=== PATIENT | female | born 1940 | race Caucasian/White ===

== ENCOUNTER 2025-06-18 11:41 | Inpatient (IN) | payer MEDICARE, MEDICAID ==
[~2025-06-18] VITALS: Ht 152.4 cm; Wt 78.4 kg
[2025-06-18] VITALS (9 sets, daily range): BP systolic 100–142; BP diastolic 71–99; PULSE 59–98; RESP 15–18; TEMP 97.5–98; O2SAT 96–100
[2025-06-18] MEDS: LORazepam 2 MG/ML VIAL IM ONE (12:05)
[2025-06-18 13:49] LABS: COVID AG,FIA SOURCE NASAL SWAB; PLATELET COUNT (AUTO) 156 K/uL (150-450); RED BLOOD CELL COUNT(AUTO) 3.65 MIL/uL (4.00-5.20); RED CELL DISTRIBUTION WIDTH 13.7 % (11.5-14.5); WHITE BLOOD COUNT (AUTO) 7.4 K/uL (4.5-11.0)
[2025-06-18 13:55] LABS: CALCIUM, TOTAL 8.3 mg/dL (8.8-10.5); CREATININE 0.93 mg/dL (0.60-1.30); GLOMERULAR FILTR. RATE CALC 58.0 mL/min (>60); GLUCOSE,RANDOM 96.0 mg/dL (70-110); SODIUM SERUM 142.0 mmol/L (136-145); UREA NITROGEN, BLOOD 21.0 mg/dL (7-18)
[2025-06-18 14:04] LABS: TROPONIN I-HIGH SENSITIVITY 22 ng/L (<51)
[2025-06-18 14:05] LABS: LACTIC ACID 1.5 mmol/L (0.4-2.0)
[2025-06-18 14:13] LABS: SARS-COV2 (COVID) ANTIGEN,FIA Negative (Negative)
[2025-06-18] MEDS ORDERED: ZOLPIDEM TARTRATE 10 MG TABLET PO PRN (15:00)
[2025-06-19] MEDS ORDERED: LOPERAMIDE HCL 2 MG CAPSULE PO PRN (06:15)
[2025-06-19] MEDS ORDERED: PETROLATUM,WHITE 28 GM JELLY TP PRN (06:15)
[2025-06-19] MEDS ORDERED: NICOTINE 14 MG/24 HOUR PATCH TD PRN (06:15)
[2025-06-19] MEDS ORDERED: ALBUTEROL SULFATE HFA 90 MCG/PUFF 8 GM INHALER IH PRN (06:15)
[2025-06-19] MEDS ORDERED: ONDANSETRON 4 MG TABLET PO PRN (06:15)
[2025-06-19] MEDS ORDERED: MAG HYDROX/ALUMINUM HYD/SIMETH ES 30 ML SUSPENSION UDCUP PO PRN (06:15)
[2025-06-19] MEDS ORDERED: GuaiFENesin/D-METHORPHAN [SUGAR-FREE] 200-20MG/10 ML SYRUP UDCUP PO PRN (06:15)
[2025-06-19 07:24] LABS: PLATELET COUNT (AUTO) 152 K/uL (150-450); RED BLOOD CELL COUNT(AUTO) 3.71 MIL/uL (4.00-5.20); RED CELL DISTRIBUTION WIDTH 13.5 % (11.5-14.5); WHITE BLOOD COUNT (AUTO) 4.2 K/uL (4.5-11.0)
[2025-06-19 07:43] LABS: ASPARTATE AMINOTRANSFERASE 22 U/L (15-37); CALCIUM, TOTAL 8.9 mg/dL (8.8-10.5); CHOL/HDL RATIO 3.1 (3.9-5.7); CREATININE 0.87 mg/dL (0.60-1.30); GLOMERULAR FILTR. RATE CALC > 60 mL/min (>60); GLUCOSE,RANDOM 90 mg/dL (70-110); LDL CHOL (CALC.) 96 mg/dL (0-130); SODIUM SERUM 142 mmol/L (136-145); TOTAL PROTEIN, SERUM 6.0 g/dL (6.4-8.2); UREA NITROGEN, BLOOD 20 mg/dL (7-18)
[2025-06-19 11:08] VITALS: BP 139/55; PULSE 59; RESP 19; TEMP 97; O2SAT 95
[2025-06-19 21:20] VITALS: BP 124/73; PULSE 62; RESP 18; TEMP 97.1; O2SAT 99
[2025-06-19 22:27] LABS: APPEARANCE,URINE CLEAR (CLEAR); GLUCOSE, URINE (UA) NEGATIVE (NEGATIVE); LEUKOCYTE ESTERASE ,URINE NEGATIVE (NEGATIVE); NITRATE,URINE NEGATIVE (NEGATIVE); OCCULT BLOOD,URINE NEGATIVE (NEGATIVE); PH,URINE DRUG SCREEN 5.5 (5.0-8.0); SPECIFIC GRAVITIY, URINE 1.012 (1.003-1.030)
[2025-06-19 22:42] LABS: ALCOHOL, URINE DRUG SCREEN NEGATIVE (NEGATIVE); AMPHET/METH SCREEN,URINE NEGATIVE (NEGATIVE); BARBITURATE SCREEN, URINE NEGATIVE (NEGATIVE); CANNABINOID SCREEN,URINE NEGATIVE (NEGATIVE); COCAINE SCREEN,URINE NEGATIVE (NEGATIVE); METHADONE SCREEN, URINE NEGATIVE (NEGATIVE)
[2025-06-20 09:20] VITALS: BP 113/52; PULSE 56; RESP 18; TEMP 97.8; O2SAT 100
[2025-06-20 11:16] VITALS: BP 118/62; PULSE 70; RESP 18; TEMP 97; O2SAT 99
[2025-06-20] MEDS: IBUPROFEN 400 MG TABLET PO PRN (11:16)
[2025-06-21 08:23] LABS: CHOL/HDL RATIO 3.1 (3.9-5.7); LDL CHOL (CALC.) 116.0 mg/dL (0-130)
[2025-06-21 14:52] VITALS: BP 122/52; PULSE 60; RESP 17; TEMP 98.1; O2SAT 100
[2025-06-21 20:00] VITALS: BP 125/62; PULSE 60; RESP 18; TEMP 97.5; O2SAT 98
[2025-06-22 09:01] VITALS: BP 137/61; PULSE 51; RESP 16; TEMP 97.8; O2SAT 98
[2025-06-22 10:01] VITALS: BP 137/61; PULSE 51; RESP 16; TEMP 97.8; O2SAT 98
[2025-06-22 20:41] VITALS: BP 110/65; PULSE 66; RESP 18; TEMP 96.7; O2SAT 95
[2025-06-23 10:09] VITALS: BP 105/44; PULSE 73; RESP 18; TEMP 96.8; O2SAT 95
[2025-06-23 20:49] VITALS: BP 124/56; PULSE 61; RESP 18; TEMP 98.1; O2SAT 99
[2025-06-24 09:14] VITALS: BP 117/55; PULSE 54; RESP 16; TEMP 98.7; O2SAT 99
[2025-06-24 20:00] VITALS: BP 121/61; PULSE 55; RESP 18; TEMP 97.5; O2SAT 95
[2025-06-25 09:41] VITALS: BP 117/68; PULSE 61; RESP 18; TEMP 97.8; O2SAT 99
[2025-06-25 20:48] VITALS: BP 119/76; PULSE 59; RESP 19; TEMP 97.9; O2SAT 99
[2025-06-26 09:13] VITALS: BP 119/52; PULSE 59; RESP 18; O2SAT 99
[2025-06-26] MEDS: SULFAMETHOX/TRIMETH DS 800-160 MG/TABLET PO SCH (09:47)
[2025-06-26 09:48] VITALS: BP 121/62; PULSE 61; RESP 17; TEMP 98
[2025-06-26 10:19] LABS: PLATELET COUNT (AUTO) 212 K/uL (150-450); RED BLOOD CELL COUNT(AUTO) 4.17 MIL/uL (4.00-5.20); RED CELL DISTRIBUTION WIDTH 13.3 % (11.5-14.5); WHITE BLOOD COUNT (AUTO) 4.7 K/uL (4.5-11.0)
[2025-06-26 10:23] LABS: CALCIUM, TOTAL 8.9 mg/dL (8.8-10.5); CREATININE 0.91 mg/dL (0.60-1.30); GLOMERULAR FILTR. RATE CALC 59.0 mL/min (>60); GLUCOSE,RANDOM 90.0 mg/dL (70-110); SODIUM SERUM 139.0 mmol/L (136-145); UREA NITROGEN, BLOOD 25.0 mg/dL (7-18)
[2025-06-26 10:48] VITALS: BP 106/61; PULSE 61; RESP 17; TEMP 98
[2025-06-26 20:50] VITALS: BP 96/68; PULSE 61; RESP 18; TEMP 97.7; O2SAT 100
[2025-06-27 08:25] VITALS: BP 105/51; PULSE 53; RESP 18; TEMP 98.2; O2SAT 100
[2025-06-27 20:38] VITALS: BP 119/49; PULSE 54; RESP 18; TEMP 97.3; O2SAT 99
[2025-06-28 08:22] VITALS: BP 141/59; PULSE 59; RESP 17; TEMP 98.2; O2SAT 97
[2025-06-28 23:49] VITALS: BP 120/57; PULSE 62; RESP 18; TEMP 98; O2SAT 97
[2025-06-29 10:05] VITALS: BP 111/42; PULSE 60; RESP 16; TEMP 98.2; O2SAT 98
[2025-06-29 20:36] VITALS: BP 139/70; PULSE 60; RESP 18; TEMP 98; O2SAT 99
[2025-06-30 15:00] VITALS: BP 142/86; PULSE 85; RESP 18; TEMP 97.5; O2SAT 98
[2025-06-30 21:25] VITALS: BP 109/65; PULSE 86; RESP 18; O2SAT 100
[2025-07-01 07:40] LABS: PLATELET COUNT (AUTO) 207 K/uL (150-450); RED BLOOD CELL COUNT(AUTO) 4.15 MIL/uL (4.00-5.20); RED CELL DISTRIBUTION WIDTH 13.6 % (11.5-14.5); WHITE BLOOD COUNT (AUTO) 5.0 K/uL (4.5-11.0)
[2025-07-01 16:46] VITALS: BP 112/83; PULSE 61; RESP 18; TEMP 97.8; O2SAT 98
[2025-07-01 21:00] VITALS: BP 146/72; PULSE 91; RESP 18; TEMP 97.5; O2SAT 98
[2025-07-02 08:06] VITALS: BP 113/61; PULSE 63; RESP 17; TEMP 98.2; O2SAT 100
[2025-07-02 20:35] VITALS: BP 140/67; PULSE 61; RESP 18; TEMP 98.2; O2SAT 97
[2025-07-03 08:33] VITALS: BP 135/65; PULSE 56; RESP 18; TEMP 97.9; O2SAT 96
[2025-07-03 08:41] VITALS: BP 135/65; PULSE 56; RESP 18; TEMP 97.9; O2SAT 100
[2025-07-03 09:48] VITALS: BP 135/65; PULSE 56; RESP 18; TEMP 97.9; O2SAT 98
[2025-07-03 20:13] VITALS: BP 131/96; PULSE 54; RESP 18; TEMP 98.3; O2SAT 99
[2025-07-04 10:49] VITALS: BP 107/70; PULSE 70; RESP 18; TEMP 98.6; O2SAT 98
[2025-07-04 20:00] VITALS: BP 114/60; PULSE 55; RESP 18; TEMP 96.5; O2SAT 97
[2025-07-05 10:16] VITALS: BP 121/104; PULSE 86; RESP 17; TEMP 97.7; O2SAT 97
[2025-07-05 20:46] VITALS: BP 115/66; PULSE 56; RESP 18; TEMP 97.8; O2SAT 99
[2025-07-06 10:16] VITALS: BP 144/60; PULSE 59; RESP 17; TEMP 98.1; O2SAT 97
[2025-07-06 21:55] VITALS: BP 145/65; PULSE 64; RESP 18; TEMP 98; O2SAT 96
[2025-07-07 08:00] VITALS: BP 117/52; PULSE 59; RESP 18; TEMP 97.9; O2SAT 98
[2025-07-07 20:33] VITALS: BP 116/63; PULSE 63; RESP 18; TEMP 98; O2SAT 98
[2025-07-08 20:00] VITALS: BP 111/53; PULSE 50; RESP 16; TEMP 98.1; O2SAT 97
[2025-07-08 21:27] VITALS: BP 111/53; PULSE 59; RESP 16; TEMP 98.1; O2SAT 97
[2025-07-09 10:33] VITALS: BP 112/55; PULSE 57; RESP 17; TEMP 97.5; O2SAT 95
[2025-07-09 21:00] VITALS: BP 119/64; PULSE 61; RESP 18; TEMP 97.8; O2SAT 96
[2025-07-10 08:30] VITALS: BP 131/68; PULSE 80; RESP 18; TEMP 98.6; O2SAT 98
[2025-07-10 16:39] VITALS: BP 120/74; PULSE 79; RESP 18; O2SAT 98
[2025-07-10 17:39] VITALS: RESP 18
[2025-07-10 23:27] VITALS: BP 128/81; PULSE 78; RESP 17; TEMP 98.5; O2SAT 97
[2025-07-11 08:05] VITALS: BP 106/59; PULSE 51; RESP 18; TEMP 97.7; O2SAT 100
[2025-07-11 21:49] VITALS: BP 101/53; PULSE 53; RESP 16; TEMP 97.7; O2SAT 95
[2025-07-12 10:23] VITALS: BP 120/72; PULSE 61; RESP 18; TEMP 98.6; O2SAT 96
[2025-07-12 21:12] VITALS: BP 126/52; PULSE 52; RESP 17; TEMP 97.7; O2SAT 96
[2025-07-13 10:57] VITALS: BP 133/60; PULSE 61; RESP 18; TEMP 98.2; O2SAT 98
[2025-07-13 21:53] VITALS: BP 112/70; PULSE 60; RESP 18; TEMP 97.7; O2SAT 98
[2025-07-14 08:00] VITALS: BP 110/61; PULSE 62; RESP 18; TEMP 97.9; O2SAT 99
[2025-07-14] MEDS: DOCUSATE SODIUM 100 MG CAPSULE PO PRN (09:38)
[2025-07-14 22:17] VITALS: RESP 18
[2025-07-15 09:00] VITALS: BP 131/56; PULSE 58; RESP 18; TEMP 98.3; O2SAT 98
[2025-07-15] MEDS: MAGNESIUM HYDROXIDE SUSPENSION 30 ML UDCUP PO PRN (18:36)
[2025-07-15 22:12] VITALS: BP 111/62; PULSE 63; RESP 18; TEMP 98.2; O2SAT 96
[2025-07-16 10:51] VITALS: BP 130/60; PULSE 78; RESP 18; TEMP 98.2; O2SAT 100
[2025-07-16 20:54] VITALS: BP 100/76; PULSE 95; RESP 18; TEMP 98.4; O2SAT 95
[2025-07-17 11:55] VITALS: BP 125/64; PULSE 64; RESP 18; TEMP 97.5; O2SAT 98
[2025-07-17 20:31] VITALS: BP 114/69; PULSE 72; RESP 18; TEMP 97.9; O2SAT 99
[2025-07-18 05:54] VITALS: BP 120/55; PULSE 55; RESP 18; O2SAT 97
[2025-07-18] MEDS: ACETAMINOPHEN 325 MG TABLET PO PRN (05:56)
[2025-07-18 06:54] VITALS: RESP 18
[2025-07-18 11:32] VITALS: BP 112/54; PULSE 58; RESP 18; TEMP 97.8; O2SAT 97
[2025-07-18] MEDS ORDERED: PARO10TA71 PO (20:05)
[2025-07-18 21:15] VITALS: BP 114/60; PULSE 62; RESP 16; TEMP 97.9; O2SAT 98
== END 2025-07-19 17:40 | disposition home or self-care (01) | DRG 885 ==
LOC: EMS 11:44 → 3EX 16:51 → 3EI 07-15 20:17
PROVIDERS: ADMIT Psychiatry & Neurology Child & Adolescent Psychiatry; ATTEND Psychiatry & Neurology Child & Adolescent Psychiatry
PROC: GZ52ZZZ Individual Psychotherapy, Cognitive (ICD-10-PCS; 2025-06-19)
PROC: GZ56ZZZ Individual Psychotherapy, Supportive (ICD-10-PCS; 2025-06-19)
PROC: GZ58ZZZ Individual Psychotherapy, Cognitive-Behavioral (ICD-10-PCS; 2025-06-19)
PROC: GZHZZZZ Group Psychotherapy (ICD-10-PCS; principal; 2025-06-21)
PROC: 0HBNXZZ Excision of Left Foot Skin, External Approach (ICD-10-PCS; 2025-06-21)
DX: F33.2 Major depressive disorder, recurrent severe without psychotic features (principal); F03.911 Unspecified dementia, unspecified severity, with agitation; F03.93 Unspecified dementia, unspecified severity, with mood disturbance; R45.851 Suicidal ideations; Z59.00 Homelessness unspecified; D64.9 Anemia, unspecified; D72.819 Decreased white blood cell count, unspecified; E66.9 Obesity, unspecified; I95.9 Hypotension, unspecified; L84 Corns and callosities; L85.9 Epidermal thickening, unspecified; Z20.822 Contact with and (suspected) exposure to COVID-19; F15.10 Other stimulant abuse, uncomplicated; F11.10 Opioid abuse, uncomplicated; Z79.899 Other long term (current) drug therapy; Z91.51 Personal history of suicidal behavior; Z68.33 Body mass index [BMI] 33.0-33.9, adult
CPT/HCPCS: 70450; 80048; 80053; 80061; 80307; 81003; 83036; 83605; 83690; 84436; 84439; 84443; 84484; 85025; 96372; 97116; 97163; 97530; 99291; G0378; G0480; J1200; J1630; J2060

== ENCOUNTER 2025-07-22 17:01 | Inpatient (IN) | payer MEDICARE, MEDICAID ==
[~2025-07-22] VITALS: Ht 154.9 cm; Wt 97.5 kg
[~2025-07-22 17:01] MED LIST: PARO10TA71 PO
[2025-07-22] MEDS: LORazepam 2 MG/ML VIAL IM ONE (17:18)
[2025-07-22 17:56] LABS: COVID AG,FIA SOURCE NASAL SWAB
[2025-07-22 18:07] LABS: APPEARANCE,URINE HAZY (CLEAR); GLUCOSE, URINE (UA) NEGATIVE (NEGATIVE); LEUKOCYTE ESTERASE ,URINE MODERATE (NEGATIVE); NITRATE,URINE NEGATIVE (NEGATIVE); OCCULT BLOOD,URINE NEGATIVE (NEGATIVE); PH,URINE DRUG SCREEN 5.5 (5.0-8.0); SPECIFIC GRAVITIY, URINE 1.022 (1.003-1.030)
[2025-07-22 18:14] LABS: ALCOHOL, URINE DRUG SCREEN NEGATIVE (NEGATIVE); AMPHET/METH SCREEN,URINE NEGATIVE (NEGATIVE); BARBITURATE SCREEN, URINE NEGATIVE (NEGATIVE); CANNABINOID SCREEN,URINE NEGATIVE (NEGATIVE); COCAINE SCREEN,URINE NEGATIVE (NEGATIVE); METHADONE SCREEN, URINE NEGATIVE (NEGATIVE)
[2025-07-22 18:21] LABS: SQUAMOUS EPITHELIAL CELL,UR Moderate /LPF (None Seen)
[2025-07-22 18:23] LABS: SARS-COV2 (COVID) ANTIGEN,FIA Negative (Negative)
[2025-07-22] MEDS: ZIPRASIDONE MESYLATE 20 MG/VIAL IM ONE (18:26)
[2025-07-22 18:38] LABS: PLATELET COUNT (AUTO) 168 K/uL (150-450); RED BLOOD CELL COUNT(AUTO) 3.69 MIL/uL (4.00-5.20); RED CELL DISTRIBUTION WIDTH 13.9 % (11.5-14.5); WHITE BLOOD COUNT (AUTO) 7.1 K/uL (4.5-11.0)
[2025-07-22 18:44] LABS: CALCIUM, TOTAL 8.3 mg/dL (8.8-10.5); CREATININE 1.18 mg/dL (0.60-1.30); GLOMERULAR FILTR. RATE CALC 44.0 mL/min (>60); GLUCOSE,RANDOM 109.0 mg/dL (70-110); SODIUM SERUM 141.0 mmol/L (136-145); UREA NITROGEN, BLOOD 35.0 mg/dL (7-18)
[2025-07-22] MEDS ORDERED: ZOLPIDEM TARTRATE 10 MG TABLET PO PRN (19:45)
[2025-07-22] MEDS: HYDROCODONE/ACETAMINOPHEN 5-325 MG TABLET PO ONE (20:00)
[2025-07-22 22:12] VITALS: O2SAT 98
[2025-07-22 22:50] VITALS: BP 145/65; PULSE 61; RESP 16; TEMP 97.7; O2SAT 98
[2025-07-23 09:03] VITALS: BP 107/64; PULSE 62; RESP 18; TEMP 97.9; O2SAT 97
[2025-07-23 09:18] LABS: PLATELET COUNT (AUTO) 153 K/uL (150-450); RED BLOOD CELL COUNT(AUTO) 3.74 MIL/uL (4.00-5.20); RED CELL DISTRIBUTION WIDTH 14.0 % (11.5-14.5); WHITE BLOOD COUNT (AUTO) 4.4 K/uL (4.5-11.0)
[2025-07-23 09:39] LABS: ASPARTATE AMINOTRANSFERASE 32 U/L (15-37); CALCIUM, TOTAL 8.3 mg/dL (8.8-10.5); CHOL/HDL RATIO 3.0 (3.9-5.7); CREATININE 0.89 mg/dL (0.60-1.30); GLOMERULAR FILTR. RATE CALC > 60 mL/min (>60); GLUCOSE,RANDOM 80 mg/dL (70-110); LDL CHOL (CALC.) 88 mg/dL (0-130); SODIUM SERUM 143 mmol/L (136-145); TOTAL PROTEIN, SERUM 5.9 g/dL (6.4-8.2); UREA NITROGEN, BLOOD 27 mg/dL (7-18)
[2025-07-23 20:42] VITALS: BP 125/69; PULSE 69; RESP 17; TEMP 98.2; O2SAT 97
[2025-07-24 08:43] VITALS: BP 139/70; PULSE 62; RESP 18; TEMP 97.9; O2SAT 99
[2025-07-24] MEDS ORDERED: ACETAMINOPHEN 325 MG TABLET PO PRN (09:15)
[2025-07-24] MEDS ORDERED: MAGNESIUM HYDROXIDE SUSPENSION 30 ML UDCUP PO PRN (09:15)
[2025-07-24] MEDS ORDERED: LOPERAMIDE HCL 2 MG CAPSULE PO PRN (09:15)
[2025-07-24] MEDS ORDERED: ALBUTEROL SULFATE HFA 90 MCG/PUFF 8 GM INHALER IH PRN (09:15)
[2025-07-24] MEDS ORDERED: IBUPROFEN 400 MG TABLET PO PRN (09:15)
[2025-07-24] MEDS ORDERED: DOCUSATE SODIUM 100 MG CAPSULE PO PRN (09:15)
[2025-07-24] MEDS ORDERED: MAG HYDROX/ALUMINUM HYD/SIMETH ES 30 ML SUSPENSION UDCUP PO PRN (09:15)
[2025-07-24] MEDS ORDERED: ONDANSETRON 4 MG TABLET PO PRN (09:15)
[2025-07-24] MEDS ORDERED: PETROLATUM,WHITE 28 GM JELLY TP PRN (09:15)
[2025-07-24] MEDS ORDERED: GuaiFENesin/D-METHORPHAN [SUGAR-FREE] 200-20MG/10 ML SYRUP UDCUP PO PRN (09:15)
[2025-07-24] MEDS ORDERED: NICOTINE 14 MG/24 HOUR PATCH TD PRN (09:15)
[2025-07-24 20:57] VITALS: BP 145/79; PULSE 60; RESP 16; TEMP 98.8; O2SAT 98
[2025-07-25 08:31] VITALS: BP 130/77; PULSE 66; RESP 17; TEMP 97; O2SAT 100
[2025-07-25 09:45] LABS: PLATELET COUNT (AUTO) 146 K/uL (150-450); RED BLOOD CELL COUNT(AUTO) 3.94 MIL/uL (4.00-5.20); RED CELL DISTRIBUTION WIDTH 13.9 % (11.5-14.5); WHITE BLOOD COUNT (AUTO) 5.3 K/uL (4.5-11.0)
[2025-07-25 10:24] LABS: ASPARTATE AMINOTRANSFERASE 26 U/L (15-37); CALCIUM, TOTAL 8.5 mg/dL (8.8-10.5); CREATININE 0.81 mg/dL (0.60-1.30); GLOMERULAR FILTR. RATE CALC > 60 mL/min (>60); GLUCOSE,RANDOM 90 mg/dL (70-110); SODIUM SERUM 143 mmol/L (136-145); TOTAL PROTEIN, SERUM 6.5 g/dL (6.4-8.2); UREA NITROGEN, BLOOD 19 mg/dL (7-18)
[2025-07-25 11:15] LABS: CHOL/HDL RATIO 3.2 (3.9-5.7); LDL CHOL (CALC.) 104.0 mg/dL (0-130)
[2025-07-25 20:10] VITALS: BP 148/61; PULSE 60; RESP 18; TEMP 98; O2SAT 99
[2025-07-26 10:00] VITALS: BP 132/80; PULSE 64; RESP 17; TEMP 98.1; O2SAT 99
[2025-07-26 20:16] VITALS: BP 122/62; PULSE 86; RESP 18; TEMP 98.3; O2SAT 98
[2025-07-27 08:18] VITALS: BP 114/67; PULSE 60; RESP 18; TEMP 98.1; O2SAT 98
[2025-07-27 09:23] LABS: APPEARANCE,URINE CLEAR (CLEAR); GLUCOSE, URINE (UA) NEGATIVE (NEGATIVE); LEUKOCYTE ESTERASE ,URINE SMALL (NEGATIVE); NITRATE,URINE NEGATIVE (NEGATIVE); OCCULT BLOOD,URINE NEGATIVE (NEGATIVE); SPECIFIC GRAVITIY, URINE 1.019 (1.003-1.030)
[2025-07-27 09:37] LABS: SQUAMOUS EPITHELIAL CELL,UR Moderate /LPF (None Seen)
[2025-07-27 20:27] VITALS: BP 110/69; PULSE 65; RESP 18; TEMP 98.1; O2SAT 100
[2025-07-28 08:12] VITALS: BP 134/62; PULSE 96; RESP 18; TEMP 98.8; O2SAT 98
[2025-07-28] MEDS: CEPHALEXIN MONOHYDRATE 500 MG CAPSULE PO SCH (09:52)
[2025-07-28] MEDS: FUROSEMIDE 20 MG TABLET PO SCH (12:57)
[2025-07-28 20:12] VITALS: BP 130/60; PULSE 87; RESP 18; TEMP 97.9; O2SAT 97
[2025-07-29 08:30] VITALS: BP 130/61; PULSE 60; RESP 18; TEMP 99.5; O2SAT 99
[2025-07-29 20:11] VITALS: BP 101/62; PULSE 74; RESP 17; TEMP 98.8; O2SAT 99
[2025-07-30 08:15] VITALS: BP 105/54; PULSE 63; RESP 18; TEMP 99.7; O2SAT 97
[2025-07-30] MEDS: DONEPEZIL HCL 5 MG TABLET PO SCH (09:24)
[2025-07-30 09:50] LABS: CALCIUM, TOTAL 8.6 mg/dL (8.8-10.5); CREATININE 0.9 mg/dL (0.60-1.30); GLOMERULAR FILTR. RATE CALC 60.0 mL/min (>60); GLUCOSE,RANDOM 102.0 mg/dL (70-110); SODIUM SERUM 139.0 mmol/L (136-145); UREA NITROGEN, BLOOD 26.0 mg/dL (7-18)
[2025-07-30 12:44] VITALS: RESP 18; TEMP 97.4
[2025-07-30 20:10] VITALS: BP 123/56; PULSE 61; RESP 18; TEMP 97.9; O2SAT 99
[2025-07-31 09:02] VITALS: BP 131/69; PULSE 60; RESP 17; TEMP 97.2; O2SAT 98
[2025-07-31 09:08] LABS: PLATELET COUNT (AUTO) 157 K/uL (150-450); RED BLOOD CELL COUNT(AUTO) 3.64 MIL/uL (4.00-5.20); RED CELL DISTRIBUTION WIDTH 13.2 % (11.5-14.5); WHITE BLOOD COUNT (AUTO) 4.0 K/uL (4.5-11.0)
[2025-07-31 09:26] LABS: CALCIUM, TOTAL 8.7 mg/dL (8.8-10.5); CREATININE 0.87 mg/dL (0.60-1.30); GLOMERULAR FILTR. RATE CALC > 60 mL/min (>60); GLUCOSE,RANDOM 90 mg/dL (70-110); SODIUM SERUM 141 mmol/L (136-145); UREA NITROGEN, BLOOD 28 mg/dL (7-18)
[2025-07-31 20:10] VITALS: BP 105/50; PULSE 95; RESP 18; TEMP 97.6; O2SAT 97
[2025-07-31 20:30] VITALS: BP 145/62; PULSE 62; RESP 19; TEMP 97.8; O2SAT 98
[2025-08-01 10:18] VITALS: BP 112/62; PULSE 54; RESP 18; TEMP 98; O2SAT 98
[2025-08-01 20:06] VITALS: BP 116/52; PULSE 61; RESP 18; TEMP 98.4; O2SAT 97
[2025-08-02 08:49] VITALS: BP 99/71; PULSE 58; RESP 19; TEMP 97.7; O2SAT 97
[2025-08-02 20:10] VITALS: BP 134/64; PULSE 60; RESP 18; TEMP 98.5; O2SAT 96
[2025-08-03 09:55] VITALS: BP 114/47; PULSE 58; RESP 18; TEMP 98; O2SAT 100
[2025-08-03 20:12] VITALS: BP 103/75; PULSE 58; RESP 18; TEMP 98.5; O2SAT 97
[2025-08-04 07:33] LABS: PLATELET COUNT (AUTO) 208 K/uL (150-450); RED BLOOD CELL COUNT(AUTO) 4.07 MIL/uL (4.00-5.20); RED CELL DISTRIBUTION WIDTH 13.3 % (11.5-14.5); WHITE BLOOD COUNT (AUTO) 4.4 K/uL (4.5-11.0)
[2025-08-04 12:25] VITALS: BP 106/70; PULSE 97; RESP 18; TEMP 97; O2SAT 98
[2025-08-04 22:15] VITALS: BP 132/69; PULSE 60; RESP 18; TEMP 97.5; O2SAT 99
[2025-08-05 15:29] VITALS: BP 140/76; PULSE 55; RESP 18; TEMP 97.5; O2SAT 98
[2025-08-05 21:11] VITALS: BP 125/67; PULSE 56; RESP 18; TEMP 97.9; O2SAT 97
[2025-08-06 08:25] VITALS: BP 122/61; PULSE 59; RESP 18; TEMP 98.7; O2SAT 98
[2025-08-06] MEDS ORDERED: DONE-52 PO (11:32)
[2025-08-06] MEDS ORDERED: PARO10TA89 PO (11:32)
== END 2025-08-06 15:30 | disposition home or self-care (01) | DRG 885 ==
LOC: EMS 17:15 → B2S 21:15 → 3EI 07-31 20:10
PROVIDERS: ADMIT Psychiatry & Neurology Child & Adolescent Psychiatry; ATTEND Psychiatry & Neurology Child & Adolescent Psychiatry
PROC: GZ56ZZZ Individual Psychotherapy, Supportive (ICD-10-PCS; 2025-07-23)
PROC: GZ52ZZZ Individual Psychotherapy, Cognitive (ICD-10-PCS; 2025-07-24)
PROC: GZHZZZZ Group Psychotherapy (ICD-10-PCS; principal; 2025-08-02)
DX: F29 Unspecified psychosis not due to a substance or known physiological condition (principal); F03.93 Unspecified dementia, unspecified severity, with mood disturbance; Z68.41 Body mass index [BMI] 40.0-44.9, adult; R45.851 Suicidal ideations; N39.0 Urinary tract infection, site not specified; I10 Essential (primary) hypertension; F32.A Depression, unspecified; E66.9 Obesity, unspecified; D72.819 Decreased white blood cell count, unspecified; D64.9 Anemia, unspecified; Z78.1 Physical restraint status; I89.0 Lymphedema, not elsewhere classified; Z20.822 Contact with and (suspected) exposure to COVID-19; Z79.899 Other long term (current) drug therapy
CPT/HCPCS: 80048; 80053; 80061; 80307; 81001; 83036; 84436; 84439; 84443; 85025; 87086; 96372; 99291; G0480; J1200; J1630; J2060; J3486

== ENCOUNTER 2025-08-12 12:01 | Inpatient (IN) | payer MEDICARE, MEDICAID ==
[~2025-08-12] VITALS: Ht 154.9 cm; Wt 85.5 kg
[~2025-08-12 12:01] MED LIST changes: +DONE-52 PO; -PARO10TA71 PO; +PARO10TA89 PO
[2025-08-12 14:22] LABS: PLATELET COUNT (AUTO) 174 K/uL (150-450); RED BLOOD CELL COUNT(AUTO) 3.73 MIL/uL (4.00-5.20); RED CELL DISTRIBUTION WIDTH 13.4 % (11.5-14.5); WHITE BLOOD COUNT (AUTO) 4.4 K/uL (4.5-11.0)
[2025-08-12 14:27] LABS: CALCIUM, TOTAL 8.3 mg/dL (8.8-10.5); CREATININE 0.91 mg/dL (0.60-1.30); GLOMERULAR FILTR. RATE CALC 59.0 mL/min (>60); GLUCOSE,RANDOM 119.0 mg/dL (70-110); SODIUM SERUM 137.0 mmol/L (136-145); UREA NITROGEN, BLOOD 21.0 mg/dL (7-18)
[2025-08-12 16:13] LABS: APPEARANCE,URINE CLEAR (CLEAR); GLUCOSE, URINE (UA) NEGATIVE (NEGATIVE); LEUKOCYTE ESTERASE ,URINE NEGATIVE (NEGATIVE); NITRATE,URINE NEGATIVE (NEGATIVE); OCCULT BLOOD,URINE NEGATIVE (NEGATIVE); PH,URINE DRUG SCREEN 5.5 (5.0-8.0); SPECIFIC GRAVITIY, URINE 1.026 (1.003-1.030)
[2025-08-12 16:25] LABS: ALCOHOL, URINE DRUG SCREEN NEGATIVE (NEGATIVE); AMPHET/METH SCREEN,URINE NEGATIVE (NEGATIVE); BARBITURATE SCREEN, URINE NEGATIVE (NEGATIVE); CANNABINOID SCREEN,URINE NEGATIVE (NEGATIVE); COCAINE SCREEN,URINE NEGATIVE (NEGATIVE); METHADONE SCREEN, URINE NEGATIVE (NEGATIVE)
[2025-08-12 16:36] LABS: COVID AG,FIA SOURCE NASAL SWAB
[2025-08-12 16:55] LABS: SARS-COV2 (COVID) ANTIGEN,FIA Negative (Negative)
[2025-08-12] MEDS ORDERED: ZOLPIDEM TARTRATE 10 MG TABLET PO PRN (17:00)
[2025-08-12] MEDS ORDERED: MAG HYDROX/ALUMINUM HYD/SIMETH ES 30 ML SUSPENSION UDCUP PO PRN (22:30)
[2025-08-12] MEDS ORDERED: PETROLATUM,WHITE 28 GM JELLY TP PRN (22:30)
[2025-08-12] MEDS ORDERED: MAGNESIUM HYDROXIDE SUSPENSION 30 ML UDCUP PO PRN (22:30)
[2025-08-12] MEDS ORDERED: NICOTINE 14 MG/24 HOUR PATCH TD PRN (22:30)
[2025-08-12] MEDS ORDERED: GuaiFENesin/D-METHORPHAN [SUGAR-FREE] 200-20MG/10 ML SYRUP UDCUP PO PRN (22:30)
[2025-08-12] MEDS ORDERED: DOCUSATE SODIUM 100 MG CAPSULE PO PRN (22:30)
[2025-08-12] MEDS ORDERED: ONDANSETRON 4 MG TABLET PO PRN (22:30)
[2025-08-13] VITALS (9 sets, daily range): BP systolic 96–138; BP diastolic 47–66; PULSE 51–64; RESP 16–18; TEMP 97.2–98.2; O2SAT 95–100
[2025-08-13 07:21] LABS: PLATELET COUNT (AUTO) 154 K/uL (150-450); RED BLOOD CELL COUNT(AUTO) 3.94 MIL/uL (4.00-5.20); RED CELL DISTRIBUTION WIDTH 13.2 % (11.5-14.5); WHITE BLOOD COUNT (AUTO) 4.2 K/uL (4.5-11.0)
[2025-08-13 07:48] LABS: ASPARTATE AMINOTRANSFERASE 17 U/L (15-37); CALCIUM, TOTAL 8.6 mg/dL (8.8-10.5); CREATININE 0.71 mg/dL (0.60-1.30); GLOMERULAR FILTR. RATE CALC > 60 mL/min (>60); GLUCOSE,RANDOM 85 mg/dL (70-110); SODIUM SERUM 140 mmol/L (136-145); TOTAL PROTEIN, SERUM 6.3 g/dL (6.4-8.2); UREA NITROGEN, BLOOD 19 mg/dL (7-18)
[2025-08-13 08:23] LABS: CHOL/HDL RATIO 2.9 (3.9-5.7); LDL CHOL (CALC.) 89.0 mg/dL (0-130)
[2025-08-13] MEDS: DONEPEZIL HCL 5 MG TABLET PO SCH (08:35)
[2025-08-14 09:10] VITALS: BP 145/74; PULSE 67; RESP 18; TEMP 98.2; O2SAT 99
[2025-08-14] MEDS: MULTIVITAMINS WITH MINERALS, THERAPEUTIC TABLET PO SCH (10:58)
[2025-08-14 20:28] VITALS: BP 152/61; PULSE 64; RESP 18; TEMP 97.9; O2SAT 99
[2025-08-14 21:00] VITALS: RESP 18
[2025-08-15 08:05] VITALS: BP 121/56; PULSE 88; RESP 17; TEMP 97.6; O2SAT 95
[2025-08-16 15:27] VITALS: BP 142/68; PULSE 60; RESP 16; TEMP 97.7; O2SAT 100
[2025-08-16 20:00] VITALS: BP 137/57; PULSE 82; RESP 18; TEMP 97.8; O2SAT 99
[2025-08-17 09:37] VITALS: BP 108/66; PULSE 60; RESP 18; TEMP 98; O2SAT 98
[2025-08-17 23:35] VITALS: BP 110/61; PULSE 61; RESP 18; TEMP 98.6; O2SAT 97
[2025-08-18 11:04] VITALS: BP 151/67; PULSE 64; RESP 17; TEMP 97.9; O2SAT 98
[2025-08-18 21:10] VITALS: BP 120/61; PULSE 61; RESP 18; TEMP 98.8; O2SAT 98
[2025-08-19 12:05] VITALS: BP 114/76; PULSE 54; RESP 18; TEMP 97.8; O2SAT 100
[2025-08-19 20:00] VITALS: BP 115/70; PULSE 60; RESP 18; TEMP 97.5; O2SAT 100
[2025-08-20 10:16] VITALS: BP 109/50; PULSE 56; RESP 16; TEMP 97.7; O2SAT 99
[2025-08-20 21:49] VITALS: BP 136/59; PULSE 56; RESP 16; TEMP 98; O2SAT 98
[2025-08-21 07:57] LABS: CALCIUM, TOTAL 8.9 mg/dL (8.8-10.5); CREATININE 0.79 mg/dL (0.60-1.30); GLOMERULAR FILTR. RATE CALC > 60 mL/min (>60); GLUCOSE,RANDOM 97 mg/dL (70-110); SODIUM SERUM 137 mmol/L (136-145); UREA NITROGEN, BLOOD 22 mg/dL (7-18)
[2025-08-21 11:10] VITALS: BP 125/69; PULSE 55; RESP 17; TEMP 97.8; O2SAT 94
[2025-08-21 20:58] VITALS: BP 120/53; PULSE 48; RESP 18; TEMP 97.6; O2SAT 98
[2025-08-22 17:52] VITALS: BP 114/71; PULSE 69; RESP 18; TEMP 97.9; O2SAT 100
[2025-08-22 20:00] VITALS: BP 110/70; PULSE 60; RESP 18; TEMP 97.5; O2SAT 100
[2025-08-23 09:39] VITALS: BP 113/62; PULSE 62; RESP 17; TEMP 98; O2SAT 99
[2025-08-23 21:02] VITALS: BP 119/60; PULSE 55; RESP 18; TEMP 98.6; O2SAT 98
[2025-08-24 08:30] VITALS: BP 102/58; PULSE 64; RESP 18; TEMP 98; O2SAT 98
[2025-08-24 22:22] VITALS: BP 110/56; PULSE 61; RESP 19; TEMP 98.2; O2SAT 95
[2025-08-25 13:26] VITALS: BP 112/52; PULSE 48; RESP 18; TEMP 98.3; O2SAT 100
[2025-08-25 20:08] VITALS: BP 100/60; PULSE 47; RESP 18; TEMP 96.6; O2SAT 99
[2025-08-26 08:35] VITALS: BP 132/58; PULSE 60; RESP 18; O2SAT 100
[2025-08-26] MEDS: IBUPROFEN 400 MG TABLET PO PRN (08:39)
[2025-08-26 22:19] VITALS: BP 119/52; PULSE 52; RESP 18; TEMP 97.9; O2SAT 97
[2025-08-27 08:31] VITALS: BP 125/106; PULSE 54; RESP 18; TEMP 98.6; O2SAT 97
[2025-08-27 22:55] VITALS: BP 124/98; PULSE 55; RESP 18; TEMP 98.1; O2SAT 98
[2025-08-28 10:10] VITALS: BP 116/58; PULSE 74; RESP 18; TEMP 97.6; O2SAT 99
[2025-08-28 20:20] VITALS: BP 118/71; PULSE 63; RESP 18; TEMP 97.8; O2SAT 97
[2025-08-29 09:41] VITALS: BP 135/81; PULSE 58; RESP 18; TEMP 97.2; O2SAT 97
[2025-08-29 21:50] VITALS: BP 120/62; PULSE 57; RESP 18; TEMP 98.6; O2SAT 98
[2025-08-30 08:59] VITALS: BP 110/53; PULSE 56; RESP 18; TEMP 98.2; O2SAT 97
[2025-08-30 21:00] VITALS: BP 141/72; PULSE 54; RESP 18; TEMP 98.8; O2SAT 97
[2025-08-31 11:03] VITALS: BP 131/82; PULSE 64; RESP 16; TEMP 97.5; O2SAT 97
[2025-08-31 21:25] VITALS: BP 110/55; PULSE 52; RESP 17; TEMP 98.7; O2SAT 98
[2025-09-01 10:38] VITALS: BP 117/57; PULSE 55; RESP 18; TEMP 97.7; O2SAT 99
[2025-09-01 21:17] VITALS: BP 127/60; PULSE 58; RESP 16; TEMP 97.6; O2SAT 98
[2025-09-02 08:55] VITALS: BP 149/68; PULSE 56; RESP 18; TEMP 98.2; O2SAT 99
[2025-09-02 22:32] VITALS: BP 120/70; PULSE 61; RESP 17; TEMP 97.8; O2SAT 98
[2025-09-03 10:10] VITALS: BP 106/70; PULSE 63; RESP 18; TEMP 97.5; O2SAT 99
[2025-09-03 15:13] VITALS: RESP 18
[2025-09-03 16:16] VITALS: RESP 17
[2025-09-03 22:53] VITALS: BP 118/68; PULSE 65; RESP 17; TEMP 97.6; O2SAT 98
[2025-09-04 01:23] VITALS: BP 115/65; PULSE 60; TEMP 97.6
[2025-09-04 11:05] VITALS: BP 140/66; PULSE 58; RESP 17; TEMP 97.7; O2SAT 98
[2025-09-04 17:13] VITALS: BP 152/69; PULSE 57; RESP 18; TEMP 97.3; O2SAT 99
[2025-09-04] MEDS: ACETAMINOPHEN 325 MG TABLET PO PRN (17:18)
[2025-09-04 18:18] VITALS: RESP 16
[2025-09-04 20:38] VITALS: BP 118/60; PULSE 61; RESP 18; TEMP 97; O2SAT 97
[2025-09-05 09:39] VITALS: BP 114/65; PULSE 58; RESP 18; TEMP 97.7; O2SAT 99
[2025-09-05] MEDS: ALBUTEROL SULFATE HFA 90 MCG/PUFF 8 GM INHALER IH PRN (15:37)
[2025-09-05 23:03] VITALS: BP 139/64; PULSE 65; RESP 18; TEMP 98.2; O2SAT 97
[2025-09-06 08:34] VITALS: BP 136/64; PULSE 51; RESP 18; TEMP 98; O2SAT 96
[2025-09-06 11:39] VITALS: BP 137/74; PULSE 58; RESP 18
[2025-09-06 20:44] VITALS: BP 113/55; PULSE 51; RESP 18; TEMP 98.8; O2SAT 98
[2025-09-07 07:48] LABS: PLATELET COUNT (AUTO) 178 K/uL (150-450); RED BLOOD CELL COUNT(AUTO) 3.73 MIL/uL (4.00-5.20); RED CELL DISTRIBUTION WIDTH 13.3 % (11.5-14.5); WHITE BLOOD COUNT (AUTO) 4.8 K/uL (4.5-11.0)
[2025-09-07 08:05] LABS: CALCIUM, TOTAL 8.3 mg/dL (8.8-10.5); CREATININE 0.75 mg/dL (0.60-1.30); GLOMERULAR FILTR. RATE CALC > 60 mL/min (>60); GLUCOSE,RANDOM 91 mg/dL (70-110); SODIUM SERUM 139 mmol/L (136-145); UREA NITROGEN, BLOOD 27 mg/dL (7-18)
[2025-09-07 10:30] VITALS: BP 139/65; PULSE 60; RESP 16; TEMP 97.9; O2SAT 98
[2025-09-07 20:34] VITALS: BP 106/61; PULSE 55; RESP 16; TEMP 97.6; O2SAT 99
[2025-09-08 08:44] VITALS: BP 120/56; PULSE 54; RESP 18; TEMP 97.4; O2SAT 98
[2025-09-08 09:44] VITALS: RESP 16
[2025-09-08 20:30] VITALS: BP 115/55; PULSE 80; RESP 18; TEMP 98.1
[2025-09-09 10:06] VITALS: BP 100/72; PULSE 78; RESP 19; TEMP 98; O2SAT 98
[2025-09-09 20:39] VITALS: BP 113/52; PULSE 73; RESP 18; TEMP 98; O2SAT 98
[2025-09-10 09:07] VITALS: BP 130/95; PULSE 50; RESP 18; TEMP 98.4; O2SAT 100
[2025-09-10 16:37] VITALS: BP 136/79; PULSE 65; RESP 18; TEMP 98.3; O2SAT 99
[2025-09-10 21:16] VITALS: BP 144/66; PULSE 52; RESP 18; TEMP 97.2; O2SAT 100
[2025-09-11 08:22] VITALS: RESP 18
[2025-09-11] MEDS: LOPERAMIDE HCL 2 MG CAPSULE PO PRN (13:56)
[2025-09-11 14:00] VITALS: BP 111/69; PULSE 61; RESP 17; TEMP 98
[2025-09-11 15:00] VITALS: BP 129/66; PULSE 62; RESP 17; TEMP 97.9
[2025-09-11 20:18] VITALS: BP 123/62; PULSE 61; RESP 18; TEMP 98; O2SAT 97
[2025-09-12 10:37] VITALS: BP 131/56; PULSE 56; RESP 18; TEMP 97.9; O2SAT 98
[2025-09-12 13:32] VITALS: BP 128/66; PULSE 61; RESP 17; TEMP 98
[2025-09-12 14:32] VITALS: BP 128/70; PULSE 72; RESP 17; TEMP 97.9
[2025-09-12 20:23] VITALS: BP 120/56; PULSE 57; RESP 18; TEMP 98.2; O2SAT 99
[2025-09-13 11:14] VITALS: BP 132/90; PULSE 62; RESP 16; TEMP 98; O2SAT 100
[2025-09-13 11:46] LABS: CALCIUM, TOTAL 8.7 mg/dL (8.8-10.5); CREATININE 0.77 mg/dL (0.60-1.30); GLOMERULAR FILTR. RATE CALC > 60 mL/min (>60); GLUCOSE,RANDOM 110 mg/dL (70-110); SODIUM SERUM 140 mmol/L (136-145); UREA NITROGEN, BLOOD 27 mg/dL (7-18)
[2025-09-13 13:33] VITALS: BP 123/62; PULSE 72; RESP 18; TEMP 98.3; O2SAT 98
[2025-09-13 14:33] VITALS: BP 133/71; PULSE 77; RESP 19; TEMP 98.2; O2SAT 99
[2025-09-13 20:41] VITALS: BP 119/62; PULSE 61; RESP 18; TEMP 98.1; O2SAT 98
[2025-09-14 16:22] VITALS: BP 144/52; PULSE 75; RESP 19; TEMP 97.6; O2SAT 99
[2025-09-14 17:22] VITALS: BP 136/62; PULSE 73; RESP 18; TEMP 97.3; O2SAT 99
[2025-09-14 20:56] VITALS: BP 113/54; PULSE 60; RESP 17; TEMP 97.7; O2SAT 98
[2025-09-15 10:11] VITALS: BP 120/71; PULSE 51; RESP 18; TEMP 97.7; O2SAT 98
[2025-09-15 14:52] VITALS: BP 133/67; PULSE 53; RESP 18; TEMP 97.8; O2SAT 99
[2025-09-15 15:52] VITALS: BP 132/68; PULSE 54; RESP 18; TEMP 97.3; O2SAT 98
[2025-09-15 20:33] VITALS: BP 126/62; PULSE 60; RESP 18; TEMP 97.7; O2SAT 99
[2025-09-16 09:42] VITALS: BP 129/66; PULSE 55; RESP 18; TEMP 97.9; O2SAT 98
[2025-09-16] MEDS ORDERED: GADOTERATE MEGLUMINE 10 MMOL/20 ML VIAL IVP ONE (14:52)
[2025-09-16 16:26] VITALS: BP 129/77; PULSE 72; RESP 17; TEMP 98
[2025-09-16 17:26] VITALS: BP 131/78; PULSE 78; RESP 17; TEMP 98
[2025-09-16 21:47] VITALS: BP 117/61; PULSE 64; RESP 18; TEMP 98.1
[2025-09-17 12:35] VITALS: BP 129/60; PULSE 55; RESP 17; TEMP 97.6; O2SAT 98
[2025-09-17] MEDS: ACETAMINOPHEN 325 MG TABLET PO PRN (13:52)
[2025-09-17 20:18] VITALS: BP 125/54; PULSE 53; RESP 18; TEMP 97.6; O2SAT 98
[2025-09-18 08:17] VITALS: BP 144/64; PULSE 59; RESP 19; TEMP 97.9; O2SAT 100
[2025-09-18 13:34] VITALS: BP 139/68; PULSE 67; RESP 18; TEMP 98; O2SAT 99
[2025-09-18 22:53] VITALS: BP 100/56; PULSE 64; RESP 18; TEMP 97.9; O2SAT 98
[2025-09-19 09:27] VITALS: BP 99/88; PULSE 57; RESP 16; TEMP 97.7; O2SAT 98
[2025-09-19 11:18] VITALS: BP 114/79; PULSE 62; RESP 17; TEMP 98; O2SAT 99
[2025-09-19 20:00] VITALS: BP 111/54; PULSE 60; RESP 18; TEMP 98; O2SAT 99
[2025-09-20 11:21] VITALS: BP 109/52; PULSE 59; RESP 19; TEMP 98; O2SAT 99
[2025-09-20] MEDS ORDERED: GADOTERATE MEGLUMINE 10 MMOL/20 ML VIAL IVP ONE (12:34)
[2025-09-20 20:11] VITALS: BP 128/72; PULSE 64; RESP 18; TEMP 97; O2SAT 97
[2025-09-21 10:18] VITALS: BP 120/83; PULSE 59; RESP 18; TEMP 97.2; O2SAT 100
[2025-09-21 20:30] VITALS: BP 112/55; PULSE 57; RESP 19; TEMP 98; O2SAT 99
[2025-09-22 08:50] VITALS: BP 103/63; PULSE 61; RESP 18; TEMP 98.2; O2SAT 99
[2025-09-22 20:30] VITALS: BP 132/58; PULSE 71; RESP 16; TEMP 97.9; O2SAT 99
[2025-09-23 14:59] VITALS: BP 114/52; PULSE 59; RESP 17; TEMP 98.1; O2SAT 100
[2025-09-23 21:07] VITALS: BP 125/80; PULSE 55; RESP 18; TEMP 98.1; O2SAT 98
[2025-09-24] MEDS ORDERED: MULT-1203 PO (14:00)
[2025-09-24 15:00] VITALS: BP 128/68; PULSE 63; RESP 17; TEMP 98
[2025-09-24 16:00] VITALS: BP 166/71; PULSE 76; RESP 17; TEMP 98
== END 2025-09-24 18:00 | DRG 885 ==
LOC: EMS 12:01 → 3EX 20:34 → 3EI 08-16 17:41
PROVIDERS: ADMIT Psychiatry & Neurology Child & Adolescent Psychiatry; ATTEND Psychiatry & Neurology Child & Adolescent Psychiatry
PROC: GZ56ZZZ Individual Psychotherapy, Supportive (ICD-10-PCS; principal; 2025-08-13)
PROC: 0HBNXZZ Excision of Left Foot Skin, External Approach (ICD-10-PCS; 2025-08-14)
PROC: 0HBRXZZ Excision of Toe Nail, External Approach (ICD-10-PCS; 2025-08-14)
PROC: 0HBRXZZ Excision of Toe Nail, External Approach (ICD-10-PCS; 2025-08-14)
PROC: 0HBRXZZ Excision of Toe Nail, External Approach (ICD-10-PCS; 2025-08-14)
PROC: 0HBRXZZ Excision of Toe Nail, External Approach (ICD-10-PCS; 2025-08-14)
PROC: 0HBRXZZ Excision of Toe Nail, External Approach (ICD-10-PCS; 2025-08-14)
PROC: 0HBRXZZ Excision of Toe Nail, External Approach (ICD-10-PCS; 2025-08-14)
PROC: 0HBRXZZ Excision of Toe Nail, External Approach (ICD-10-PCS; 2025-08-14)
PROC: 0HBRXZZ Excision of Toe Nail, External Approach (ICD-10-PCS; 2025-08-14)
PROC: 0HBRXZZ Excision of Toe Nail, External Approach (ICD-10-PCS; 2025-08-14)
PROC: 0HBRXZZ Excision of Toe Nail, External Approach (ICD-10-PCS; 2025-08-14)
DX: F20.0 Paranoid schizophrenia (principal); M86.8X7 Other osteomyelitis, ankle and foot; F03.918 Unspecified dementia, unspecified severity, with other behavioral disturbance; D72.819 Decreased white blood cell count, unspecified; D64.9 Anemia, unspecified; E66.9 Obesity, unspecified; I10 Essential (primary) hypertension; Z20.822 Contact with and (suspected) exposure to COVID-19; I89.0 Lymphedema, not elsewhere classified; L84 Corns and callosities; R00.1 Bradycardia, unspecified; F40.240 Claustrophobia; Z53.20 Procedure and treatment not carried out because of patient's decision for unspecified reasons; Z68.35 Body mass index [BMI] 35.0-35.9, adult
CPT/HCPCS: 73718; 80048; 80053; 80061; 80307; 81003; 83036; 83735; 84436; 84439; 84443; 85025; 85651; 86140; 87081; 93005; 93306; 97110; 97116; 97162; 97167; 97530; 97535; 99285; G0378; G0480; J3535